=== PATIENT | male | born 1955 ===

== ENCOUNTER 2016-05-19 15:14 | Emergency (ER) | payer MEDICARE, OTHER ==
--- NOTE | 2016-05-19 16:29 | UC ---
Abdominal Pain Male HPI - HPI Summary HPI Summary: 60 yo male with 4 day hx of abd pain (LUQ) initially had frequent vomiting (? coffee grounds) no f/c no UTI symptoms no CP/SOB/near syncope hx RA off meds x weeks was on chronic prednisone suspects wt loss anorexia decreased oral intake - History of Current Complaint Stated Complaint: LOWER RT ABD PAIN/UPPER LEFT ABD PAIN Time Seen by Provider: 05/19/16 16:09 Hx Obtained From: Patient Onset/Duration: Sudden Onset Timing: Constant Severity Initially: Moderate Severity Currently: Moderate Pain Intensity: 7 Pain Scale Used: 0-10 Numeric Location: Epigastric Radiates to: LLQ Character: Aching, Sharp Aggravating Factor(s):: Food, Movement Alleviating Factor(s): Nothing Associated Signs And Symptoms: Positive: Decreased Appetite, Vomiting - Allergies/Home Medications Allergies/Adverse Reactions: Allergies Allergy/AdvReac Type Severity Reaction Status Date / Time No Known Allergies Allergy Verified 05/19/16 16:06 Home Medications: Home Medications Hydrocodone-Acetaminophen [Vicodin 5-300 mg] 1 tab PO Q6H PRN 05/19/16 [History Confirmed 05/19/16] PMH/Surg Hx/FS Hx/Imm Hx Previously Healthy: No - RA/alcoholism - Surgical History Surgical History: Yes Surgery Procedure, Year, and Place: RIGHT KNEE - Family History Known Family History: Positive: Hypertension - Social History Alcohol Use: Daily Alcohol Amount: 10-15 BEERS AGO Substance Use Type: None Smoking Status (MU): Heavy Every Day Tobacco Smoker Type: Cigarettes Amount Used/How Often: 2 PPD Household Exposure Type: Cigarettes Review of Systems Constitutional: Negative Skin: Negative Eyes: Negative ENT: Negative Respiratory: Negative Cardiovascular: Negative Gastrointestinal: Abdominal Pain, Vomiting Genitourinary: Negative Motor: Negative Neurovascular: Negative Musculoskeletal: Negative Neurological: Negative Psychological: Negative All Other Systems Reviewed And Are Negative: Yes Physical Exam Triage Information Reviewed: Yes Appearance: Ill-Appearing, Pain Distress Vital Signs: Initial Vital Signs Temp 99.5 F 05/19/16 16:08 Pulse 73 05/19/16 16:08 Resp 24 05/19/16 16:08 BP 107/64 05/19/16 16:08 Pulse Ox 99 05/19/16 16:08 Vital Signs Reviewed: Yes Eyes: Positive: Conjunctiva Clear ENT: Positive: Hearing grossly normal. Negative: Nasal congestion, Nasal drainage, Trismus, Muffled/hoarse voice Neck: Positive: Supple, Nontender Respiratory: Positive: Lungs clear, Normal breath sounds, No respiratory distress, No accessory muscle use Cardiovascular: Positive: RRR, No Murmur. Negative: Tachycardia, Bradycardia Abdomen Description: Positive: Hepatomegaly, Splenomegaly - ???. Negative: Nontender - tender LUQ/rock hard epigastric mass just left of midline, Bruit, CVA Tenderness (R), CVA Tenderness (L) Musculoskeletal: Positive: ROM Intact, No Edema Neurological: Positive: Alert Psychological Exam: Normal Skin Exam: Normal Diagnostics - EKG Cardiac Rate: NL Cardiac Rhythm: Sinus: Normal Ectopy: None ST Segment: Normal Abd Pain Male Course/Dx - Course Course Of Treatment: d/w Chela Preston NP. to [facility] via EMS - Differential Dx/Clinical Impression Provider Diagnoses: abdominal pain/mass Discharge - Discharge Plan Condition: Guarded Disposition: TRANS HIGHER LVL OF CARE FAC
[2016-05-19] MEDS ORDERED: NS 0.9% 1000 ML* 1,000 ML ONE (16:40)
[2016-05-19] MEDS ORDERED: Ondansetron INJ* 2 MG/ML VIAL IV ONE (16:40)
[2016-05-19 17:00] VITALS: BP 118/71
== END 2016-05-19 17:00 | disposition short-term general hospital (02) ==
LOC: UCCORT 15:14
DX: R10.12 Left upper quadrant pain (principal); R10.13 Epigastric pain; R19.06 Epigastric swelling, mass or lump; F17.210 Nicotine dependence, cigarettes, uncomplicated
CPT/HCPCS: 93005; 99203; G0463